=== PATIENT | female | born 1980 | race Caucasian/White ===

== ENCOUNTER 2017-07-22 07:36 | Emergency (ER) | payer MEDICAID, OTHER ==
--- NOTE | 2017-07-22 08:20 | ED Physician Chart ---
ED Chief Complaint/HPI - Patient Information Date Seen:: 07/22/17 Time Seen:: 08:15 Chief Complaint:: Dysuria History of Present Illness:: Brought in by private auto for the above reason. Pt is Kinyarwanda speaking. Interpretation is provided by my nurse Mr. Wallace Coombs. No fever. Pt also has had intermittent lower abdominal pressure type of discomfort, precipitated and aggravated with urination. Pt has had urinary frequency/urgency. ?trace hematuria. No vaginal bleeding or discharge. LNMP 06/13/17. ? nausea. No vomiting. No lightheadedness. Allergies:: Allergies Allergy/AdvReac Type Severity Reaction Status Date / Time No Known Allergies Allergy Verified 07/22/17 07:56 Vitals:: Vital Signs - 8 hr 07/22/17 07:56 Temp 97.9 F HR 92 RR 18 BP 132/79 O2 Sat % 98 Historian:: Patient Family MD/PCP:: Dr. Pitts. LMP:: 06-13-17 Review:: Nurse's Note Reviewed ED Review of Systems - Review of Systems General/Constitutional: No fever, No weight loss, No weakness, No edema, Loss of appetite Skin: No rash, No bruising Head: No headache, No light-headedness Eyes: No loss of vision, No pain ENT: No earache, Sore throat, No sore throat Neck: No neck pain, No swelling, No thyromegaly, No mass noted Cardio Vascular: No chest pain, No palpitations, No edema Pulmonary: No SOB, No cough, No wheezing G/U: Dysuria, Frequency, No hematuria Language And Literature Division Chair: No vaginal discharge Musculoskeletal: No bone or joint pain Endocrine: Polyuria, No polydipsia Psychiatric: No prior psych history Hematopoietic: No bruising, No lymphadenopathy Allergic/Immuno: No urticaria, No angioedema Neurological: No focal symptoms, No weakness, No paresthesia, No headache, No confusion ED Past Medical History - Past Medical History Past Medical History: No significant medical hx Family History: None Social History: Non Smoker, No Alcohol, No Drug Use, , Employed, Other ( lives with her .) 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 Surgical History: Cholecystectomy (2014) Psychiatricy History: None Medication: None Family Medical History - Family Member Mother History Unknown: Yes Ethnicity: Living Status: Still Living ED Physical Exam - Physical Examination General/Constitutional: Awake, Well-developed, well-nourished, Alert, No distress, Non-toxic appearing, Ambulatory Other Gen/Cons comments:: Breathes comfortably, speaks clearly, and interacts normally. Head: Atraumatic Eyes: Lids, conjuctiva normal, PERRL, EOMI Skin: Nl inspection, No rash, No ecchymosis, Well hydrated, No lymphadenopathy ENMT: External ears, nose nl, Nasal exam nl, Oropharynx nl Neck: Nontender, Full ROM w/o pain, No nuchal rigidity, No mass, No stridor Respiratory: Nl effort/Exclusion, Clear to Auscultation, No Wheeze/Rhonchi/Rales Cardio Vascular: RRR, No murmur, gallop, rubs GI: No organomegaly, No hernia, Nondistended, No mass/bruits, No McBurney tenderness Other GI comments:: Abdomen is obese but soft. Mild vague tenderness at suprapubic region. No R/G. : No CVA tenderness Extremities: No tenderness or effusion, Full ROM, No edema Neuro/Psych: Alert/oriented (oriented x 3), Mood normal, Normal gait, No focal deficits ED Labs/Radiology/EKG Results - Lab Results Results: Laboratory Tests 07/22/17 07/22/17 07/22/17 07:45 08:22 08:22 WBC 14.7 H RBC 4.45 Hgb 13.5 Hct 40.0 L MCV 89.9 MCH 30.4 MCHC Differential 33.9 RDW 12.4 Plt Count 279 MPV 8.0 Band Neutrophils % 4 Neutrophils (Manual) 84 H Lymphocytes 10 L Monocytes 2 Sodium 138 Potassium 4.2 Chloride 105 Carbon Dioxide 28.6 Anion Gap 8.6 BUN 15 Creatinine 0.5 L Est GFR ( Amer) > 60.0 Est GFR (Non-Af Amer) > 60.0 BUN/Creatinine Ratio 30.0 Glucose 98 Calcium 9.1 Urine Source CLEAN C Urine Color YELLOW Urine Clarity CLOUDY H Urine pH 5.5 Ur Specific Kill[place] 1.020 Urine Protein 100 H Urine Glucose (UA) NEGATIVE Urine Ketones TRACE Urine Blood LARGE H Urine Nitrate POSITIVE H Urine Bilirubin NEGATIVE Urine Urobilinogen 0.2 Ur Leukocyte Esterase MODERATE H Urine RBC 5-10 H Urine WBC 25-50 H Ur Epithelial Cells MODERATE Urine Bacteria MODERATE H Urine Test 07/22/17 08:52 WBC RBC Hgb Hct MCV MCH MCHC Differential RDW Plt Count MPV Band Neutrophils % Neutrophils (Manual) Lymphocytes Monocytes Sodium Potassium Chloride Carbon Dioxide Anion Gap BUN Creatinine Est GFR ( Amer) Est GFR (Non-Af Amer) BUN/Creatinine Ratio Glucose Calcium Urine Source Urine Color Urine Clarity Urine pH Ur Specific Kill[place] Urine Protein Urine Glucose (UA) Urine Ketones Urine Blood Urine Nitrate Urine Bilirubin Urine Urobilinogen Ur Leukocyte Esterase Urine RBC Urine WBC Ur Epithelial Cells Urine Bacteria Urine Test NEGATIVE ED Septic Shock - . Is Septic Shock (SBP<90, OR Lactate>4 mmol\L) present?: No - <6hrs of presentation: Vital Signs: Vital Signs - 8 hr 07/22/17 07:56 Temp 97.9 F HR 92 RR 18 BP 132/79 O2 Sat % 98 ED Reassessment (Disposition) - Reassessment Reassessment:: 0930 Pt feels much better. Lab findings have been reviewed with pt. Pt requests to go home now and does not want further observation/management in hospital. Aftercare instructions have been given. Interpretation is provided by my nurse Mr. Wallace Coombs. Reassessment Condition:: Improved - Diagnosis Diagnosis:: Urinary tract infection/Acute cystitis. - Aftercare/Follow up Instructions Aftercare/Follow-Up Instructions:: Refer to Discharge Instructions Notes:: Push oral fluid. May take Tylenol 500 mg tab one tab po q6h prn pain. F/U with PCP Dr. Lang in 1-2 days for recheck with repeat lab studies: CBC , urinalysis. Return to ER immediately if condition worsens or if any further questions/problems. Medication Prescribed:: Bactrim DS one tab po q12h for 7 days. D-14 R-0 - Patient Disposition Discharge/Transfer:: Home Condition at Disposition:: Stable, Improved ED Discharge Plan - Patient Disposition Prescriptions: Sulfamethoxazole/TMP [Bactrim Ds] 1 tab PO Q12HR #14 tab Instructions: Urinary Tract Infection, [id number] Additional Instructions: Take antibiotic medication as prescribed. Follow-up with primary MD.
[2017-07-22 08:27] LABS: URINE MICROSCOPIC INDICATED? YES; URINE SOURCE CLEAN C
[2017-07-22 08:33] LABS: URINE BILIRUBIN NEGATIVE (NEGATIVE); URINE BLOOD LARGE (NEGATIVE); URINE GLUCOSE (UA) NEGATIVE (NEGATIVE); URINE KETONE TRACE mg/dL (NEGATIVE); URINE LEUKOCYTE ESTERASE MODERATE (NEGATIVE); URINE NITRATE POSITIVE (NEGATIVE); URINE PH 5.5 (4.6 - 8.0); URINE PROTEIN 100 mg/dL (NEGATIVE); URINE UROBILINOGEN 0.2 E.U./dL (0.2 - 1.0)
[2017-07-22 08:39] LABS: URINE CLARITY CLOUDY (CLEAR); URINE COLOR YELLOW
[2017-07-22 08:41] LABS: MEAN CELL VOLUME 89.9 fl (81-100); MEAN CORPUSCULAR HGB CONC 33.9 pg (28.0-36.0)
[2017-07-22 08:46] LABS: URINE WBC 25-50 /hpf (0-5)
[2017-07-22 08:47] LABS: URINE BACTERIA MODERATE /hpf (NONE SEEN); URINE EPITHELIAL CELLS MODERATE /lpf (FEW)
[2017-07-22 08:48] LABS: HEMOGLOBIN 13.5 gm/dL (12-16); MEAN CORPUSCULAR HEMOGLOBIN 30.4 pg (27.0-31.0); PLATELET COUNT 279 Th/cmm (150-400); RED BLOOD COUNT 4.45 Mil/cmm (3.80-5.10); RED CELL DISTRIBUTION WIDTH 12.4 % (11.5-20.0); WHITE BLOOD COUNT 14.7 Th/cmm (4.8-10.8)
[2017-07-22 08:49] LABS: MANUAL DIFF REQUIRED? YES
[2017-07-22 09:03] LABS: ANION GAP 8.6 (7.0-16.0); BUN - UREA NITROGEN 15 mg/dL (7-25); CALCIUM SERUM 9.1 mg/dL (8.6-10.3); CARBON DIOXIDE 28.6 mEq/L (21.0-31.0); CHLORIDE 105 mEq/L (98-107); CREATININE - SERUM 0.5 mg/dL (0.6-1.2); GFR AFRICAN-AMERICAN > 60.0 ml/min (>90); GFR NON AFRICAN-AMERICAN > 60.0 ml/min; GLUCOSE 98 mg/dL (70-105); POTASSIUM SERUM 4.2 mEq/L (3.5-5.1); SODIUM SERUM 138 mEq/L (136-145)
[2017-07-22 09:04] LABS: BAND NEUTROPHILE 4 % (0-10); LYMPHOCYTE 10 % (20-50); MONOCYTE 2 % (2-10); NEUTROPHILS 84 % (40-80); TOTAL CELLS COUNTED 100
[2017-07-22] MEDS ORDERED: Sulfamethoxazole/TMP 800/160mg Tab PO ONE (09:22)
[2017-07-22] MEDS ORDERED: Sulfamethoxazole/TMP 800/160mg Tab ONE (09:25)
== END 2017-07-22 09:40 | disposition home or self-care (01) ==
LOC: ER 07:36
DX: R30.0 Dysuria (principal); R10.30 Lower abdominal pain, unspecified; Z90.49 Acquired absence of other specified parts of digestive tract
CPT/HCPCS: 36415-UA; 80048-TC; 81001-TC; 81025-TC; 85007-TC; 85027-TC; 87086-90; Z7502; Z7610